=== PATIENT | male | born 1950 | race Caucasian/White ===

== ENCOUNTER 2024-04-04 11:31 | Inpatient (IN) | payer MEDICARE, OTHER ==
[~2024-04-04] VITALS: Ht 177.8 cm; Wt 92.3 kg
[~2024-04-04 11:31] MED LIST: AMLO2.5T2 PO; EMPA25TA PO; FURO-150 PO; LOSA-415 PO; MEMA10TA22 PO; ROSU40TA PO
[2024-04-04] MEDS ORDERED: iohexol 350MG/ML 100ml bottle IV ONE (13:14)
[2024-04-04 13:15] LABS: BASOPHILS % (AUTO) 0.6 % (0-1); EOSINOPHILS % (AUTO) 0.1 % (0-6); HEMOGLOBIN 11.6 g/dl (14.0-17.9); LYMPHOCYTES # (AUTO) 1.5 X10'3 (1.1-4.8); LYMPHOCYTES % (AUTO) 28.4 % (21-51); MEAN CORPUSCULAR HEMOGLOBIN 28.7 PG (27.0-31.0); MEAN CORPUSCULAR HGB CONC 33.2 g/dL (33.0-36.5); MEAN CORPUSCULAR VOLUME 86.2 FL (78-98); MEAN PLATELET VOLUME 8.2 FL (7.4-10.4); MONOCYTES % (AUTO) 18.2 % (2-12); NEUTROPHILS # (AUTO) 2.8 X10'3 (1.8-7.7); NEUTROPHILS % (AUTO) 52.7 % (42-75); PLATELET COUNT 146 X10'3 (140-440); RED BLOOD COUNT 4.06 X10'6 (4.70-6.10); RED CELL DISTRIBUTION WIDTH 15.6 % (11.5-14.5); WHITE BLOOD COUNT 5.4 X10'3 (4.5-11.0)
[2024-04-04 13:41] LABS: TOTAL CELLS COUNTED 100
[2024-04-04 13:42] LABS: BURR CELLS 1+; ELLIPTOCYTES FEW; PLATELET ESTIMATE NORMAL
[2024-04-04 13:43] LABS: ALANINE AMINOTRANSFERASE 49 U/L (12-78); ALBUMIN 3.1 G/DL (3.4-5.0); ALBUMIN/GLOBULIN RATIO 0.8 (1.1-1.5); ALKALINE PHOSPHATASE 58 IU/L (46-116); ANION GAP 11 (8-16); ASPARTATE AMINO TRANSFERASE 78 U/L (10-37); BILIRUBIN,TOTAL 0.4 MG/DL (0.1-1.0); BLOOD UREA NITROGEN 43 MG/DL (7-18); BUN/CREATININE RATIO 26.5 (10.0-20.0); CALCIUM 8.9 MG/DL (8.5-10.1); CHLORIDE 108 MMOL/L (99-107); CREATININE 1.62 MG/DL (0.60-1.10); GLUCOSE 108 MG/DL (70-104); POTASSIUM 3.9 MMOL/L (3.5-5.1); SODIUM 141 MMOL/L (135-145); eCRCL 42 ML/MIN; eGFR 42 ML/MIN
[2024-04-04] MEDS: PERFLUTREN PROTEIN-A MICROSPHR (Optison) 0.22 MG/ML 3ML VIAL IV ONE (16:10)
[2024-04-04] MEDS ORDERED: potassium Cl 20 mEq SR tablet PO PRN ×2 (16:20)
[2024-04-04] MEDS ORDERED: magnesium sulf-water 4G/100mL 100 ML IV PRN (16:20)
[2024-04-04] MEDS ORDERED: magnesium Cl slow-release 64mg tablet PO PRN (16:20)
[2024-04-04] MEDS ORDERED: potassium Cl 40MEQ/1/2NS 520ml 520 ML IV PRN (16:20)
[2024-04-04] MEDS ORDERED: magnesium sulf-water 2g/50mL 50 ML IV PRN (16:20)
[2024-04-04 16:46] LABS: BILIRUBIN,URINE NEGATIVE (Neg); CLARITY,URINE SLIGHTLY CLOUDY (Clear); COLOR,URINE YELLOW (Yellow); GLUCOSE, URINE 250 mg/dl (Neg); KETONES,URINE NEGATIVE (Neg); LEUKOCYTE ESTERASE ,URINE NEGATIVE (Neg); NITRITES, URINE NEGATIVE (Neg); OCCULT BLOOD,URINE LARGE (Neg); PROTEIN,URINE 100 mg/dl (Neg); UA COLLECTION TYPE CLN CATCH MIDSTREAM; UROBILINOGEN,URINE 0.2 E.U/dL (0.2-1.0)
[2024-04-04] MEDS: aspirin 325mg tablet PO ONE (16:47)
[2024-04-04 16:52] LABS: SQUAMOUS EPITHELIAL CELL,UR NONE SEEN /LPF (FEW)
[2024-04-04 16:53] LABS: BACTERIA,URINE 4+ /HPF (Neg); RBC,URINE 0-2 /HPF (0-2); WBC,URINE 50-100 /HPF (0-4)
[2024-04-04 16:58] LABS: SODIUM,URINE RANDOM 57 MEQ/L; URINE AMPHETAMINE SCREEN NEGATIVE (Neg); URINE BARBITUATE SCREEN NEGATIVE (Neg); URINE BENZODIAZEPINES SCREEN NEGATIVE (Neg); URINE CANNABINOID SCREEN NEGATIVE (Neg); URINE COCAINE SCREEN NEGATIVE (Neg); URINE METHADONE SCREEN NEGATIVE (Neg); URINE OPIATE SCREEN NEGATIVE (Neg); URINE PHENCYCLIDINE SCREEN NEGATIVE (Neg)
[2024-04-04] MEDS: clopidogrel 300mg tablet PO ONE (17:21)
[2024-04-04] MEDS: methylPREDNISolone sod succ 125mg/2ml vial IV ONE (17:21)
[2024-04-04] MEDS ORDERED: albuterol 2.5 MG/3 ML nebule NEB PRN (17:55)
[2024-04-04] MEDS ORDERED: ipratropium/albuterol 3ml nebule NEB PRN (17:55)
[2024-04-04] MEDS: normal saline 1000ml 1,000 ML IV SCH ×2 (18:14→19:49)
[2024-04-04] MEDS: REMDESIVIR INJ (loading dose) 200 MG in normal saline 100ml IV soln 100 ML IV ONE (18:14)
[2024-04-04] MEDS ORDERED: glucagon, human recombinant 1mg kit SUBCUT PRN (18:20)
[2024-04-04] MEDS ORDERED: dextrose 50%-water 50ml dispensing syringe IV PRN ×2 (18:20)
[2024-04-04] MEDS ORDERED: DEXTROSE 15 GM of carb/4 tabs (each vial/BOTTLE has 4 tablets) PO PRN ×2 (18:20)
[2024-04-04] MEDS: CefTRIAXone/D5W-Rocephin 1gm 50 ML IV SCH (19:48)
[2024-04-04] MEDS: K and/or MAG REPLACEMENT MC SCH (20:00)
[2024-04-04] MEDS: heparin, porcine 5000 units/ml vial SQ SCH (20:13)
[2024-04-04] MEDS: methylPREDNISolone sod succ 125mg/2ml vial IV SCH (20:17)
[2024-04-04 20:44] VITALS: PULSE 76; RESP 15; O2SAT 97
[2024-04-04] MEDS: INSULIN LISPRO 100 UNIT/ML INSULN.PEN MULTI-DOSE SQ SCH (21:00)
[2024-04-04] MEDS ORDERED: albuterol 60 PUFF/8GM Inhaler (90mcg/1 puff) IH PRN (21:25)
[2024-04-04 22:00] VITALS: BP 105/59; PULSE 52; RESP 26; TEMP 96.9; O2SAT 97
[2024-04-05] VITALS (10 sets, daily range): BP systolic 94–115; BP diastolic 58–69; PULSE 50–67; RESP 14–26; TEMP 96.9–99.8; O2SAT 93–97
[2024-04-05] MEDS ORDERED: MIRT-142 PO (00:15)
[2024-04-05] MEDS ORDERED: METO-384 PO (00:15)
[2024-04-05] MEDS: Melatonin 3mg tablet PO PRN (02:41)
[2024-04-05] MEDS: insulin glargine (Lantus) pen - multi-dose SQ SCH ×2 (02:44→21:52)
[2024-04-05 07:37] LABS: BASOPHILS % (AUTO) 0.2 % (0-1); EOSINOPHILS % (AUTO) 0 % (0-6); HEMATOCRIT 32.4 % (42.0-52.0); HEMOGLOBIN 10.6 g/dl (14.0-17.9); LYMPHOCYTES # (AUTO) 0.9 X10'3 (1.1-4.8); LYMPHOCYTES % (AUTO) 22.8 % (21-51); MEAN CORPUSCULAR HEMOGLOBIN 28.7 PG (27.0-31.0); MEAN CORPUSCULAR HGB CONC 32.8 g/dL (33.0-36.5); MEAN CORPUSCULAR VOLUME 87.6 FL (78-98); MEAN PLATELET VOLUME 8.2 FL (7.4-10.4); MONOCYTES # (AUTO) 0.2 X10'3 (0-0.9); MONOCYTES % (AUTO) 6.3 % (2-12); NEUTROPHILS # (AUTO) 2.7 X10'3 (1.8-7.7); NEUTROPHILS % (AUTO) 70.7 % (42-75); PLATELET COUNT 103 X10'3 (140-440); RED CELL DISTRIBUTION WIDTH 15.9 % (11.5-14.5); WHITE BLOOD COUNT 3.9 X10'3 (4.5-11.0)
[2024-04-05 07:49] LABS: APTT 36 SECONDS (22-32); INR 1.1 INR; PROTHROMBIN TIME 11.2 SECONDS (9.0-12.0)
[2024-04-05] MEDS: REMDESIVIR INJ (loading dose) 100 MG in normal saline 100ml IV soln 100 ML IV SCH (09:21)
[2024-04-05] MEDS: aspirin 81mg, enteric-coated 1 TAB TABLET.DR PO SCH (09:22)
[2024-04-05] MEDS: atorvastatin 20mg tablet PO SCH (09:22)
[2024-04-05] MEDS: clopidogrel 75mg tablet PO SCH (09:22)
[2024-04-05 09:26] LABS: D-DIMER 0.94 MG/L FEU (0-0.50)
[2024-04-05 09:47] LABS: ALANINE AMINOTRANSFERASE 52 U/L (12-78); ALBUMIN 2.9 G/DL (3.4-5.0); ALBUMIN/GLOBULIN RATIO 0.8 (1.1-1.5); ALKALINE PHOSPHATASE 57 IU/L (46-116); ANION GAP 15 (8-16); ASPARTATE AMINO TRANSFERASE 61 U/L (10-37); BILIRUBIN,TOTAL 0.2 MG/DL (0.1-1.0); BLOOD UREA NITROGEN 41 MG/DL (7-18); BUN/CREATININE RATIO 25.9 (10.0-20.0); C-REACTIVE PROTEIN 3.66 MG/DL (0.0-0.5); CALCIUM 8.4 MG/DL (8.5-10.1); CHLORIDE 105 MMOL/L (99-107); CHOL/HDL RATIO 1.6 (0.00-4.99); CHOLESTEROL 63 MG/DL (0-200); CREATININE 1.58 MG/DL (0.60-1.10); GLUCOSE 233 MG/DL (70-104); HDL CHOLESTEROL 40 MG/DL (35-60); LDL CHOLESTEROL 20 MG/DL (50-100); PRO BRAIN NATRIURETIC PEPTIDE 867 PG/ML (0-125); SODIUM 142 MMOL/L (135-145); TOTAL CARBON DIOXIDE 21.6 MMOL/L (24-32); TOTAL PROTEIN 6.6 G/DL (6.4-8.2); TRIGLYCERIDES 90 MG/DL (20-135); eCRCL 43 ML/MIN; eGFR 43 ML/MIN
[2024-04-05] MEDS: normal saline 1000ml 1,000 ML IV SCH (18:40)
[2024-04-05] MEDS: mirtazapine 15mg tablet PO SCH (21:45)
[2024-04-05] MEDS: memantine 5mg tablet PO SCH (21:45)
[2024-04-06 02:00] VITALS: BP 100/50; PULSE 67; RESP 18; TEMP 97.8; O2SAT 96
[2024-04-06 04:11] VITALS: PULSE 46; RESP 20; O2SAT 96
[2024-04-06 06:00] VITALS: BP 108/66; PULSE 58; RESP 26; TEMP 97; O2SAT 98
[2024-04-06 08:00] VITALS: RESP 20; O2SAT 98
[2024-04-06 08:12] LABS: BASOPHILS % (AUTO) 0 % (0-1); EOSINOPHILS % (AUTO) 0 % (0-6); HEMOGLOBIN 11.7 g/dl (14.0-17.9); LYMPHOCYTES # (AUTO) 1.4 X10'3 (1.1-4.8); LYMPHOCYTES % (AUTO) 14.9 % (21-51); MEAN CORPUSCULAR HEMOGLOBIN 28.6 PG (27.0-31.0); MEAN CORPUSCULAR HGB CONC 33.3 g/dL (33.0-36.5); MEAN CORPUSCULAR VOLUME 85.7 FL (78-98); MEAN PLATELET VOLUME 8.4 FL (7.4-10.4); MONOCYTES # (AUTO) 0.7 X10'3 (0-0.9); MONOCYTES % (AUTO) 7.3 % (2-12); NEUTROPHILS # (AUTO) 7.3 X10'3 (1.8-7.7); NEUTROPHILS % (AUTO) 77.8 % (42-75); PLATELET COUNT 154 X10'3 (140-440); RED BLOOD COUNT 4.08 X10'6 (4.70-6.10); RED CELL DISTRIBUTION WIDTH 15.8 % (11.5-14.5); WHITE BLOOD COUNT 9.4 X10'3 (4.5-11.0)
[2024-04-06 08:19] LABS: APTT 29 SECONDS (22-32); PROTHROMBIN TIME 10.8 SECONDS (9.0-12.0)
[2024-04-06 08:39] LABS: ALANINE AMINOTRANSFERASE 44 U/L (12-78); ALBUMIN 3.1 G/DL (3.4-5.0); ALBUMIN/GLOBULIN RATIO 0.8 (1.1-1.5); ALKALINE PHOSPHATASE 57 IU/L (46-116); ANION GAP 13 (8-16); ASPARTATE AMINO TRANSFERASE 46 U/L (10-37); BILIRUBIN,TOTAL 0.2 MG/DL (0.1-1.0); BLOOD UREA NITROGEN 42 MG/DL (7-18); BUN/CREATININE RATIO 28.6 (10.0-20.0); CALCIUM 8.8 MG/DL (8.5-10.1); CHLORIDE 108 MMOL/L (99-107); CREATININE 1.47 MG/DL (0.60-1.10); GLUCOSE 137 MG/DL (70-104); POTASSIUM 3.6 MMOL/L (3.5-5.1); SODIUM 143 MMOL/L (135-145); TOTAL CARBON DIOXIDE 21.6 MMOL/L (24-32); TOTAL PROTEIN 7.1 G/DL (6.4-8.2); eCRCL 46 ML/MIN; eGFR 47 ML/MIN
[2024-04-06] MEDS: atorvastatin 20mg tablet PO SCH (09:01)
[2024-04-06] MEDS: ringers solution, lacted 1,000 ML IV SCH (10:25)
[2024-04-06 11:00] VITALS: BP 123/69; PULSE 58; RESP 16; TEMP 97.6; O2SAT 96
[2024-04-06 11:24] VITALS: PULSE 56; RESP 16; O2SAT 95
[2024-04-06] MEDS ORDERED: CEFD300C3 PO (13:15)
[2024-04-06] MEDS ORDERED: LISI2.5T14 PO (13:15)
[2024-04-06] MEDS ORDERED: DEXA6TAB PO (13:15)
[2024-04-06] MEDS ORDERED: LACT1CAP26 PO (13:15)
[2024-04-06] MEDS ORDERED: CLOP75TA34 PO (13:15)
[2024-04-06] MEDS ORDERED: ROSU40TA PO (13:15)
[2024-04-06] MEDS ORDERED: ASPI-1071 PO (13:15)
[2024-04-06] MEDS ORDERED: heparin, porcine 5000 units/ml vial SQ SCH (20:00)
== END 2024-04-06 15:30 | disposition home or self-care (01) | DRG 64 ==
LOC: ER 11:31 → ED HOLD 16:16 → PCU 3S 21:45
PROVIDERS: ADMIT Family Medicine; ATTEND Family Medicine
PROC: XW033E5 Introduction of Remdesivir Anti-infective into Peripheral Vein, Percutaneous Approach, New Technology Group 5 (ICD-10-PCS; principal; 2024-04-04)
PROC: B3251ZZ Computerized Tomography (CT Scan) of Bilateral Common Carotid Arteries using Low Osmolar Contrast (ICD-10-PCS; 2024-04-04)
PROC: B32G1ZZ Computerized Tomography (CT Scan) of Bilateral Vertebral Arteries using Low Osmolar Contrast (ICD-10-PCS; 2024-04-04)
PROC: B32R1ZZ Computerized Tomography (CT Scan) of Intracranial Arteries using Low Osmolar Contrast (ICD-10-PCS; 2024-04-04)
PROC: B3281ZZ Computerized Tomography (CT Scan) of Bilateral Internal Carotid Arteries using Low Osmolar Contrast (ICD-10-PCS; 2024-04-04)
PROC: B32T1ZZ Computerized Tomography (CT Scan) of Left Pulmonary Artery using Low Osmolar Contrast (ICD-10-PCS; 2024-04-06)
PROC: B3201ZZ Computerized Tomography (CT Scan) of Thoracic Aorta using Low Osmolar Contrast (ICD-10-PCS; 2024-04-06)
PROC: B32S1ZZ Computerized Tomography (CT Scan) of Right Pulmonary Artery using Low Osmolar Contrast (ICD-10-PCS; 2024-04-06)
DX: I63.9 Cerebral infarction, unspecified (principal); U07.1 COVID-19; N17.9 Acute kidney failure, unspecified; N39.0 Urinary tract infection, site not specified; Z66 Do not resuscitate; F32.A Depression, unspecified; G31.83 Neurocognitive disorder with Lewy bodies; F02.80 Dementia in other diseases classified elsewhere, unspecified severity, without behavioral disturbance, psychotic disturbance, mood disturbance, and anxiety; Z79.899 Other long term (current) drug therapy; Z95.1 Presence of aortocoronary bypass graft; Z51.5 Encounter for palliative care; R29.6 Repeated falls; R27.0 Ataxia, unspecified
CPT/HCPCS: 36415; 70450; 70496; 70498; 71045; 71275; 80053; 80061; 80305; 81001; 82570; 82948; 83036; 83605; 83880; 84133; 84145; 84300; 84484; 85007; 85025; 85379; 85610; 85730; 86140; 87040; 87077; 87081; 87088; 87186; 87502; 87503; 87811; 92508; 92616; 93005; 93306; 93970; 94760; 97116; 97162; 99285; G0378; J0696; J1644; J1815; J2919; J7030; J7120; Q9967